=== PATIENT | female | born 1990 | race Caucasian/White ===

== ENCOUNTER 2016-08-28 18:26 | Emergency (ER) | payer SELFPAY ==
[2016-08-28 21:41] LABS: APPEARANCE,URINE SLIGHTLY-CLOUDY; BILIRUBIN,URINE NEGATIVE (NEGATIVE); GLUCOSE, URINE NEGATIVE (NEGATIVE); KETONES,URINE NEGATIVE (NEGATIVE); LEUKOCYTE ESTERASE,URINE SMALL (NEGATIVE); NITRITE,URINE NEGATIVE (NEGATIVE); PROTEIN,URINE 100 mg/dL (NEGATIVE); URINE SPECIFIC GRAVITY 1.027; UROBILINOGEN,URINE NEGATIVE mg/dL (<2.0)
--- NOTE | 2016-08-28 21:52 | ER Document Report ---
ED General - General Chief Complaint: Pain With Urination Stated Complaint: PAINFUL URNIATING Time Seen by Provider: 08/28/16 21:15 TRAVEL OUTSIDE OF THE [place] IN LAST 30 DAYS: No - HPI Notes: Patient is 25-year-old female comes the office complaining of dysuria, frequency , bladder pressure 1 day. Patient states she has had a history of UTIs in the past and believes she may have a urinary infection. Patient still able to eat and drink without any problems. She has noticed some hematuria. She has not had anything for her symptoms. Patient is sexually active with monogamous partner. She states that he has not had any urinary discharge or signs of STDs. Patient states that she has had some vaginal bleeding, that may be related to her menstrual cycle. Patient denies any urethral discharge,vaginal pain or white discharge. Denies any fever, URI, sore throat, chest pain, palpitations, syncope, shortness of breath, cough, wheeze, dyspnea, back pain, abdominal pain, nausea, vomiting, diarrhea, constipation, muscle weakness, rash. Denies loss of control of bowel/bladder. - Related Data Allergies/Adverse Reactions: Penicillins Allergy (Verified 08/28/16 18:29) Past Medical History - Social History Smoking Status: Unknown if Ever Smoked Chew tobacco use (# tins/day): No Drug Abuse: None Family History: Reviewed & Not Pertinent Patient has suicidal ideation: No Patient has homicidal ideation: No Renal/ Medical History: Denies: Hx Peritoneal Dialysis Review of Systems - Review of Systems Notes: REVIEW OF SYSTEMS: CONSTITUTIONAL : Denies fever, chills, or sweats. Denies recent illness. EENT: Denies eye, ear, throat, or mouth pain or symptoms. Denies nasal or sinus congestion or discharge. Denies throat, tongue, or mouth swelling or difficulty swallowing. CARDIOVASCULAR: Denies chest pain. Denies palpitations or racing or irregular heart beat. Denies ankle edema. RESPIRATORY: Denies cough, cold, or chest congestion. Denies shortness of breath, difficulty breathing, or wheezing. GASTROINTESTINAL: Denies abdominal pain or distention. Denies nausea, vomiting , or diarrhea. Denies blood in vomitus, stools, or per rectum. Denies black, tarry stools. Denies constipation. GENITOURINARY: see hpi. FEMALE GENITOURINARY: see hpi MUSCULOSKELETAL: Denies back or neck pain or stiffness. Denies joint pain or swelling. SKIN: Denies rash, lesions or sores. ALL OTHER SYSTEMS REVIEWED AND NEGATIVE. Dictation was performed using [employer] voice recognition software Physical Exam - Vital signs Vitals: Temp Pulse Resp BP Pulse Ox 98.3 F 89 16 112/72 100 08/28/16 18:29 08/28/16 18:29 08/28/16 18:29 08/28/16 18:29 08/28/16 18:29 Notes: PHYSICAL EXAMINATION: GENERAL: Well-appearing, well-nourished and in no acute distress. NECK: Normal range of motion, supple without lymphadenopathy LUNGS: Breath sounds clear to auscultation bilaterally and equal. No wheezes rales or rhonchi. HEART: Regular rate and rhythm without murmurs, rubs, gallops. ABDOMEN: Soft, nontender, nondistended abdomen. No guarding, no rebound. No masses appreciated. Normal bowel sounds present. No CVA tenderness bilaterally. Musculoskeletal: FROM to passive/active to extremities b/l. Strength 5+/5. : deferred Extremities: No cyanosis, clubbing, or edema b/l. Peripheral pulses 2+. Capillary refill less than 3 seconds. NEUROLOGICAL: Normal speech, normal gait. Normal sensory, motor exams PSYCH: Normal mood, normal affect. SKIN: Warm, Dry, normal turgor, no rashes or lesions noted. Course - Re-evaluation Re-evalutation: 08/28/16 22:11 Patient is an afebrile, well-hydrated, 25yo female who presents with urinary symptoms, suspect UTI based on urine dip/H&P. I will cover her with bactrim DS PO BID x10 days as she is allergic to PCN's. Vitals are stable. No alarming red flags at this time. Low suspicion for any acute abdomen, kidney stone, ectopic, AAA, or pyelonephritis. urine negative. Conservative measures. Recheck with PCM in 2-3 days for a recheck. Return to the ED with worsening/alarming symptoms as reviewed in discharge. Pt in agreement. - Vital Signs Vital signs: Temp Pulse Resp BP Pulse Ox 98.3 F 75 18 125/79 99 08/28/16 18:29 08/28/16 22:09 08/28/16 22:09 08/28/16 22:09 08/28/16 22:09 - Laboratory Laboratory results interpreted by me: 08/28/16 21:15 Urine Protein 100 H Urine Blood MODERATE H Ur Leukocyte Esterase SMALL H Urine Ascorbic Acid 40 H Discharge - Discharge Clinical Impression: UTI (urinary tract infection) Qualifiers: Urinary tract infection type: site unspecified Hematuria presence: with hematuria Qualified Code(s): N39.0 - Urinary tract infection, site not specified Condition: Stable Disposition: HOME, SELF-CARE Instructions: Urinary Tract Infection ([facility]), Trimethoprim-Sulfa ([facility]) Additional Instructions: Push fluids (i.e. water, cranberry juice) Proper hygenic technique Keep the skin clean Tylenol/ibuprofen as needed May use over the counter AZO for burning with urination Take medications as directed F/u with your PCM in 2-3 days for a recheck Consider consult with a Urologist for ongoing/worsening symptoms. Return to the ED with any development of fever, worsening pain, blood in the urine, flank pain, abdominal pain, n/v, Chest Pain, shortness of breath, or trouble breathing. Prescriptions: Sulfamethoxazole/Trimethoprim [Septra Susp 800-160 mg/20 ml Udcup] 20 ml PO BID #400 ml Referrals: LOCALMD,NO [Primary Care Provider] - Follow up as needed
[2016-08-28 22:13] VITALS: BP 125/79
== END 2016-08-28 22:09 | disposition home or self-care (01) ==
LOC: ER 18:26
DX: N39.0 Urinary tract infection, site not specified (principal); Z88.0 Allergy status to penicillin; Z87.440 Personal history of urinary (tract) infections
CPT/HCPCS: 81001; 81025; 99283

== ENCOUNTER 2016-09-25 14:06 | Emergency (ER) | payer SELFPAY ==
--- NOTE | 2016-09-25 14:50 | ER Document Report ---
HPI - HPI Patient complains to provider of: Wants to confirm a positive home test Pain Level: Denies Context: 25-year-old nauseated female 3 weeks late for her menses had a positive home test which she wants to confirm today here in the emergency room. No pelvic pain, vaginal discharge, vaginal bleeding, dysuria, or fever. drinking water. Associated Symptoms: None Exacerbated by: Denies Relieved by: Denies Similar symptoms previously: No Recently seen / treated by doctor: No - ROS ROS below otherwise negative: Yes Systems Reviewed and Negative: Yes All other systems reviewed and negative - CARDIOVASCULAR Cardiovascular: DENIES: Chest pain - REPRODUCTIVE LMP: august 15, 2016 - DERM Skin Color: Normal Past Medical History - General Information source: Patient - Social History Smoking Status: Never Smoker Frequency of alcohol use: None Drug Abuse: None Lives with: Spouse/Significant other Family History: Reviewed & Not Pertinent Patient has suicidal ideation: No Patient has homicidal ideation: No - Medical History Medical History: Negative Renal/ Medical History: Denies: Hx Peritoneal Dialysis Past Surgical History: Reports: Hx Oral Surgery, Hx Orthopedic Surgery - neck Vertical Provider Document - CONSTITUTIONAL Agree With Documented VS: Yes Exam Limitations: No Limitations - INFECTION CONTROL TRAVEL OUTSIDE OF THE [place] IN LAST 30 DAYS: No - HEENT HEENT: Atraumatic, Normocephalic - NECK Neck: Supple. negative: Lymphadenopathy-Left, Lymphadenopathy-Right - RESPIRATORY Respiratory: Breath Sounds Normal, No Respiratory Distress O2 Sat by Pulse Oximetry: 100 - CARDIOVASCULAR Cardiovascular: Regular Rate, Regular Rhythm - GI/ABDOMEN Gastrointestinal: Abdomen Soft, Abdomen Non-Tender, No Organomegaly - BACK Back: Normal Inspection. negative: CVA Tenderness-Right, CVA Tenderness-Left - MUSCULOSKELETAL/EXTREMETIES Musculoskeletal/Extremeties: MASHANNON, FROM - NEURO Level of Consciousness: Awake, Alert - DERM Integumentary: Warm, Dry, No Rash Course - Re-evaluation Re-evalutation: 09/25/16 15:35 blood not drawn yet, had to tell the nurses to get it. 09/25/16 17:05 quantitative HCG 12,247 - Vital Signs Vital signs: Temp Pulse Resp BP Pulse Ox 98.6 F 84 12 103/48 L 100 09/25/16 14:10 09/25/16 14:10 09/25/16 14:10 09/25/16 14:10 09/25/16 14:10 Discharge - Discharge Clinical Impression: Early stage of Condition: Good Disposition: HOME, SELF-CARE Instructions: ([facility]), [facility] ([facility]), [facility] [place] Additional Instructions: Daily multivitamin No smoking Schedule appointment with the health department or [facility] doctors Return to the emergency room for any pain or bleeding. Plenty of water daily eat small frequent meals Please complete the patient satisfaction survey if you get one, and return it.. If you do not receive a survey, then you can go to the [facility] website, [email or web address] and place your comments about your very good care. Thank you very much. It was a pleasure being your medical provider today. Forms: Return to Work
[2016-09-25 17:25] VITALS: BP 119/70
== END 2016-09-25 17:24 | disposition home or self-care (01) ==
LOC: ER 14:06
DX: Z32.01 Encounter for pregnancy test, result positive (principal); Z3A.01 Less than 8 weeks gestation of pregnancy
CPT/HCPCS: 36415; 84702; 99281

== ENCOUNTER → 2016-11-04 | Outpatient (CLI) | payer SELFPAY ==
--- NOTE | 2016-11-04 16:52 | RADIOLOGY REPORT (SQ) ---
EXAM DESCRIPTION: U/S [id number] TRNABD 1GES W/ODOP COMPLETED DATE/TIME: 11/04/2016 4:42 pm REASON FOR STUDY: ENCOUNTER FOR SUPERVISION OF OTHER NORMAL , FIRST TRIMESTER Z34.81 ENCOU NTER FOR SUPRVSN OF NORMAL , FIRST TRIM COMPARISON: None. TECHNIQUE: S choose 2 static and realtime grayscale images acquired of the pelvis. Additional select ed spectral and color Doppler images recorded. All images stored on PACs. bHCG: Not available. LIMITATIONS: None. FINDINGS: FETUS: Living intrauterine . EGA: 11 weeks 3 days LASHELL: 05/23/2017 FHR: 165 beats per minute. SUBCHORIONIC BLEED: Yes. SIZE OF BLEED: 1.2 cm. UTERUS: No masses. No anomalies. CERVICAL LENGTH: 2.8 cm. Closed. RIGHT ADNEXA: Normal ovary with normal vascular flow. No adnexal free fluid. No adnexal masses. LEFT ADNEXA: Ovary not identified. No adnexal free fluid. No adnexal masses. FREE FLUID: None. OTHER: No other significant finding. IMPRESSION: LIVING INTRAUTERINE . EGA 11 weeks 3 days. Small subchronic hemorrhage. Trimester of : First - 0 to 13 weeks. TECHNICAL DOCUMENTATION: JOB ID: [id number] [employer]- All Rights Reserved
== END ==
LOC: RAD 16:09
PROVIDERS: ATTEND Nurse Practitioner Women's Health
DX: O20.8 Other hemorrhage in early pregnancy (principal); Z3A.11 11 weeks gestation of pregnancy
CPT/HCPCS: 76801

== ENCOUNTER 2016-11-21 18:06 | Emergency (ER) | payer SELFPAY ==
--- NOTE | 2016-11-21 19:38 | ER Document Report ---
ED GI/ - General Chief Complaint: OB Problem (<20wks) Stated Complaint: URINARY PROBLEM Time Seen by Provider: 11/21/16 19:00 Mode of Arrival: Ambulatory Notes: 26-year-old female presents to ED for feeling "off ". She states that she is 13 weeks and she just did not feel like her normal self. This is her second she has 1 child at home this about 2. She states she goes to [facility] for her . She states she is already had one ultrasound. She denies any nausea or vomiting. She denies any pelvic pain, vaginal bleeding, or vaginal discharge. TRAVEL OUTSIDE OF THE [place] IN LAST 30 DAYS: No - HPI Patient complains to provider of: Other - Feeling off Onset: Other - Couple days Timing/Duration: Intermittent Quality of pain: No pain Severity in ED: None Pain Level: Denies Vaginal bleeding (Compared to normal period): None Menstrual period history: : 2 Para: 1 heart tones (bpm): 139 Associated symptoms: denies: Urinary hesitancy, Urinary frequency, Urinary retention, Urinary urgency, Vaginal discharge Exacerbated by: Denies Relieved by: Denies Similar symptoms previously: Yes Recently seen / treated by doctor: No - Related Data Allergies/Adverse Reactions: Penicillins Allergy (Verified 11/21/16 18:16) Past Medical History - General Information source: Patient Last Menstrual Period: 08/15/16 - Social History Smoking Status: Never Smoker Cigarette use (# per day): No Chew tobacco use (# tins/day): No Smoking Education Provided: No Frequency of alcohol use: None Drug Abuse: None Lives with: Spouse/Significant other Family History: Reviewed & Not Pertinent Patient has suicidal ideation: No Patient has homicidal ideation: No - Past Medical History Cardiac Medical History: Reports: None Pulmonary Medical History: Reports: None EENT Medical History: Reports: None Neurological Medical History: Reports: None Endocrine Medical History: Reports: None Renal/ Medical History: Reports: Other - Hemorrhage at childbirth with first child Malignancy Medical History: Reports: None GI Medical History: Reports: Hx Gastroesophageal Reflux Disease Musculoskeltal Medical History: Reports None Skin Medical History: Reports None Psychiatric Medical History: Reports: Hx Anxiety, Hx Attention Deficit Hyperactivity Disorder Traumatic Medical History: Reports: None Infectious Medical History: Reports: None Past Surgical History: Reports: Hx Myringotomy, Hx Oral Surgery, Hx Orthopedic Surgery - neck - Immunizations Immunizations up to date: Yes Hx Diphtheria, Pertussis, Tetanus Vaccination: Yes Review of Systems - Review of Systems Constitutional: Other - Feeling a little "off" EENT: No symptoms reported Cardiovascular: No symptoms reported Respiratory: No symptoms reported Gastrointestinal: No symptoms reported Genitourinary: No symptoms reported Female Genitourinary: No symptoms reported Musculoskeletal: No symptoms reported Skin: No symptoms reported Hematologic/Lymphatic: No symptoms reported Neurological/Psychological: No symptoms reported -: Yes All other systems reviewed and negative Physical Exam - Vital signs Vitals: Temp Pulse Resp BP Pulse Ox 98.6 F 102 H 18 111/82 100 11/21/16 18:14 11/21/16 18:14 11/21/16 18:14 11/21/16 18:14 11/21/16 18:14 Interpretation: Normal - General General appearance: Appears well, Alert - HEENT Head: Normocephalic, Atraumatic Eyes: Normal Pupils: PERRL - Respiratory Respiratory status: No respiratory distress Chest status: Nontender Breath sounds: Normal Chest palpation: Normal - Cardiovascular Rhythm: Regular Heart sounds: Normal auscultation Murmur: No - Abdominal Inspection: Normal Distension: No distension Bowel sounds: Normal Tenderness: Nontender Organomegaly: No organomegaly - Back Back: Normal, Nontender - Extremities General upper extremity: Normal inspection, Nontender, Normal color, Normal ROM , Normal temperature General lower extremity: Normal inspection, Nontender, Normal color, Normal ROM , Normal temperature, Normal weight bearing. No: Lois's sign - Neurological Neuro grossly intact: Yes Cognition: Normal Orientation: AAOx4 [place] Coma Scale Eye Opening: Spontaneous Danielle Coma Scale Verbal: Oriented [place] Coma Scale Motor: Obeys Commands [place] Coma Scale Total: 15 Speech: Normal Motor strength normal: LUE, RUE, LLE, RLE Sensory: Normal - Psychological Associated symptoms: Normal affect, Normal mood - Skin Skin Temperature: Warm Skin Moisture: Dry Skin Color: Normal Course - Re-evaluation Re-evalutation: 11/21/16 19:48 Patient has a negative assessment. She states she just felt off and wanted an ultrasound. Then she states she never had any pictures of the baby. Patient has no nausea, vomiting, abdominal pain, pelvic pain, vaginal bleeding, or vaginal discharge. Patient instructed to follow-up with the [facility] and asked them when they do ultrasounds. - Vital Signs Vital signs: Temp Pulse Resp BP Pulse Ox 98.6 F 102 H 18 111/82 100 11/21/16 18:14 11/21/16 18:14 11/21/16 18:14 11/21/16 18:14 11/21/16 18:14 Discharge - Discharge Clinical Impression: Concern about complication without diagnosis Condition: Stable Disposition: HOME, SELF-CARE Additional Instructions: You came to the ED because she was stated you were concerned about her . You were feeling "a little off. " You heart tones are 139. You have no tenderness to the abdomen and pelvis. You denied any nausea vomiting or any urinary concern. Continue with your current activity. We will up with the [facility] department at your next scheduled visit. FOLLOW-UP CARE: If you have been referred to a physician for follow-up care, call the physician s office for an appointment as you were instructed or within the next two days. If you experience worsening or a significant change in your symptoms, notify the physician immediately or return to the Emergency Department at any time for re-evaluation.
[2016-11-21 19:49] VITALS: BP 110/54
== END 2016-11-21 20:05 | disposition home or self-care (01) ==
LOC: ER 18:06
DX: Z34.81 Encounter for supervision of other normal pregnancy, first trimester (principal); Z88.0 Allergy status to penicillin
CPT/HCPCS: 99283